=== PATIENT | female | born 1960 | race Caucasian/White ===

== ENCOUNTER 2019-06-27 03:54 | Observation (INO) ==
--- NOTE | 2019-06-27 04:04 | PROVIDER DOCUMENTATION ---
[id number] Abuse/Overdose - General Chief Complaint: Overdose Stated Complaint: OD Time Seen by Provider: 06/27/19 04:03 Source: patient Allergies/Adverse Reactions: Allergies Allergy/AdvReac Type Severity Reaction Status Date / Time No Known Allergies Allergy Verified 01/18/15 11:22 Home Medications: Home Medication List Medication Instructions Recorded Confirmed Last Taken Type Citalopram [Celexa] 20 mg PO DAILY 06/27/19 06/27/19 Unknown History Telmisartan 40 mg PO DAILY 06/27/19 06/27/19 Unknown History - History of Present Illness-Drug/Alcohol Nature of Presenting Problem: Patient is a 58 year old white female who presents by private car complaining of overdose of citalapram tonight of unknown amount. There are 20mg citalapram X 15 that are unaccounted for. Situational problems related to:: reports: significant other (caring for parent who is ill) Psychiatric Complaints: reports: depressed Associated Symptoms: reports: nausea Any injuries associated with this episode of intoxication?: No Similar Symptoms Previously?: No Recently seen or treated by another doctor?: No - Substance Abuse Substance Use: reports: denies - Alcohol Abuse Usually drinks:: occasionally - Overdose Intentional drug overdose?: Yes List substance(s) ingested.: maximum of 20mg citalapram X20 Suicide Risk Assessment: depressed Clinician's estimation of suicide risk?: uncertain risk Review of Systems - Adult - REVIEW OF SYSTEMS - ADULT Constitutional: denies: chills, fever Eyes: reports: no symptoms reported Ears, Nose, Mouth & Throat: reports: no symptoms reported Cardiovascular: reports: no symptoms reported Respiratory: reports: no symptoms reported Gastrointestinal: reports: no symptoms reported Genitourinary: reports: no symptoms reported Musculoskeletal: reports: no symptoms reported Integumentary: reports: no symptoms reported Neurological: reports: no symptoms reported Psychiatric: reports: see HPI, anxiety, depression Endocrine: reports: no symptoms reported Hematologic/Lymphatic: reports: no symptoms reported Allergic/Immunologic: reports: no symptoms reported All Other Systems: Reviewed and Negative Past History - Adult - PAST MEDICAL HISTORY-ADULT Review of Records: reports: Old Records Reviewed, Nursing Assessment Review, Medications Reviewed, Social history reviewed & non-contributory. Major Childhood Illnesses: reports: history unknown Cardiovascular: reports: denies history Respiratory: reports: denies history Gastrointestinal: reports: denies history Genitourinary: reports: denies history Musculoskeletal: reports: denies history Neurological: reports: denies history Psychiatric: reports: anxiety, depression Endocrine/Immune: reports: denies history - PRIOR SURGERIES/PROCEDURES Surgical/Procedure History: reports: hysterectomy, gastric bypass - IMMUNIZATION STATUS Childhood Immunizations: See Nurse Assessment Flu Vaccine: See Nurse Assessment Physical Exam-General - CONSTITUTIONAL General Appearance: alert, no apparent distress, slow to respond - EYES Eyes: other (clear) - HEAD, EARS, NOSE, MOUTH & THROAT HENMT: normocephalic/atraumatic, moist mucous membranes - NECK Neck: non-tender, full range of motion, supple - RESPIRATORY Respiratory: lungs clear, normal breath sounds - CARDIOVASCULAR Cardiovascular: regular rate, rhythm - GASTROINTESTINAL (ABDOMEN) Abdominal Exam: normal bowel sounds, non tender, soft - LYMPHATIC Lymphatic: no adenopathy - MUSCULOSKELETAL Back Exam: normal inspection, no CVA tenderness Extremity: normal range of motion, non-tender Peripheral Pulses: radial (R): 2+, radial (L): 2+ - SKIN Integumentary: normal color, normal turgor, warm/dry - NEUROLOGIC Neurologic: grossly normal, no motor/sensory deficits - PSYCHIATRIC Psych/Mental Status: oriented x 3, depressed affect Progress - PLAN OF CARE/RESULTS Progress/Plan/Lab Results: Vital Signs - 8 hr 06/27/19 04:00 06/27/19 04:48 06/27/19 05:00 Temperature 98.2 F Pulse Rate 82 74 72 Respiratory Rate 20 16 14 Blood Pressure 160/110 137/95 142/100 O2 Sat by Pulse Oximetry 96 93 L 93 L Laboratory Results - last 24 hr 06/27/19 06/27/19 06/27/19 04:04 04:04 04:04 WBC 7.52 RBC 4.88 Hgb 15.6 Hct 47.2 H MCV 96.7 MCH 32.0 H MCHC 33.1 RDW Std Deviation 13.2 Plt Count 238 MPV 8.3 Immature Gran % (Auto) 0.1 Neut % (Auto) 74.5 Lymph % (Auto) 19.7 L Victoria % (Auto) 5.3 Eos % (Auto) 0.3 Baso % (Auto) 0.1 Immature Gran # (Auto) 0.01 Neut # (Auto) 5.60 Lymph # (Auto) 1.48 Victoria # (Auto) 0.40 Eos # (Auto) 0.02 Baso # (Auto) 0.01 Sodium 140 Potassium 3.9 Chloride 102 Carbon Dioxide 26 Anion Gap 13 BUN 13 Creatinine 0.6 Estimated GFR/1.73 m2 > 60 BUN/Creatinine Ratio 22 Glucose 163 H Calculated Osmolality 283 Calcium 9.1 Total Bilirubin 0.40 AST 22 ALT 14 Alkaline Phosphatase 112 H Total Protein 7.0 Albumin 4.7 Globulin 2.0 Albumin/Globulin Ratio 2.0 Salicylates < 3.00 L Urine Opiates Screen Ur Oxycodone Screen Urine Methadone Screen U Propoxyphene Qual Acetaminophen < 1.2 L Ur Barbituates Screen Ur Tricyclics Screen Ur Phencyclidine Scrn Ur Amphetamines Screen U Methamphetamines Scrn U Benzodiazepines Scrn Urine Cocaine Screen U Cannabinoids Screen Plasma/Serum Ethyl Alc 06/27/19 04:08 WBC RBC Hgb Hct MCV MCH MCHC RDW Std Deviation Plt Count MPV Immature Gran % (Auto) Neut % (Auto) Lymph % (Auto) Victoria % (Auto) Eos % (Auto) Baso % (Auto) Immature Gran # (Auto) Neut # (Auto) Lymph # (Auto) Victoria # (Auto) Eos # (Auto) Baso # (Auto) Sodium Potassium Chloride Carbon Dioxide Anion Gap BUN Creatinine Estimated GFR/1.73 m2 BUN/Creatinine Ratio Glucose Calculated Osmolality Calcium Total Bilirubin AST ALT Alkaline Phosphatase Total Protein Albumin Globulin Albumin/Globulin Ratio Salicylates Urine Opiates Screen NONE DETECTED Ur Oxycodone Screen NONE DETECTED Urine Methadone Screen NONE DETECTED U Propoxyphene Qual NONE DETECTED Acetaminophen Ur Barbituates Screen NONE DETECTED Ur Tricyclics Screen NONE DETECTED Ur Phencyclidine Scrn NONE DETECTED Ur Amphetamines Screen NONE DETECTED U Methamphetamines Scrn NONE DETECTED U Benzodiazepines Scrn PRESUMPTIVE POSITIVE A Urine Cocaine Screen NONE DETECTED U Cannabinoids Screen NONE DETECTED Plasma/Serum Ethyl Alc Orders Category Date Time Status Cardiac Monitoring DIRECTED Care 06/27/19 04:04 Active Saline Loc NOW Care 06/27/19 04:05 Active ACETAMINOPHEN [TDM] Stat Lab 06/27/19 04:04 Completed ALCOHOL BLOOD Stat Lab 06/27/19 04:04 Completed CBC WITH ELECTRONIC DIFF [HEME] Stat Lab 06/27/19 04:04 Completed CMP [COMPREHENSIVE METABOLIC PANEL] [CHEM] Stat Lab 06/27/19 04:04 Completed MAGNESIUM [CHEM] Stat Lab 06/27/19 05:34 Ordered SALICYLATES [TDM] Stat Lab 06/27/19 04:04 Completed URINE DRUG SCREEN PL Stat Lab 06/27/19 04:08 Completed Pulse Oximetry Stat Oth 06/27/19 04:05 Completed EKG [EKG] Stat Ther 06/27/19 04:05 Ordered Result Diagrams: 06/27/19 04:04 06/27/19 04:04 - CONSULTS/PCP/HOSPITALIST Notification #1 *Consult/PCP/Hospitalist*: Dr. Valentin,hospitalist Time Discussed: 05:35 Consult Disposition: Admit Departure - Departure Date of Disposition Decision: 06/27/19 Time of Disposition Decision: 05:40 DIAGNOSIS: Suicidal ideation Overdose of antidepressant Qualifiers: Encounter type: initial encounter Injury intent: intentional self-harm Qualified Code(s): T43.202A - Poisoning by unspecified antidepressants, intentional self-harm, initial encounter Disposition: ADMITTED INPATIENT 09 Certified Medical Emergency: Emergent Condition: Stable Referrals and Follow-Ups: Alexandru Noyola MD [Primary Care Provider] - - Critical Care Note This patient required my direct & personal management of CC.: No Attestation - Physician/ BANDAR Attestation Patient care was provided by Advanced Practice Provider:: No The physician spent face to face time with patient:: Yes Advanced Practice Provider documentation review:: Supervising physician onsite and consulted in the evaluation and care of this patient. The physician did have a face to face encounter with the patient.
[2019-06-27 04:15] LABS: BASO# 0.01 X1000 (0.0-0.2); BASO% 0.1 % (0.0-0.8); EOS# 0.02 X1000 (0.0-0.7); EOS% 0.3 % (0.0-10.0); HEMATOCRIT 47.2 % (37.0-47.0); HEMOGLOBIN 15.6 g/dL (12.0-16.0); IMM GRAN# 0.01 X1000 (0.0-0.04); IMM GRAN% 0.1 % (0.0-0.5); LYMPH# 1.48 X1000 (1.2-3.4); LYMPH% 19.7 % (20.5-51.1); MCHC 33.1 g/dL (33-37); MCV 96.7 FL (81-99); MONO% 5.3 % (1.7-9.3); MPV 8.3 FL (7.4-10.4); NEUT% 74.5 % (42.2-75.2); PLT 238 X1000 (130-400); RBC 4.88 XMIL (4.2-5.4); RDW 13.2 % (11.5-14.5); WBC 7.52 X1000 (4.8-10.8)
[2019-06-27 04:33] LABS: UR AMPHETAMINES QUAL NONE DETECTED (NONE DETECT); UR BARBITUATES QUAL NONE DETECTED (NONE DETECT); UR BENZODIAZEPIN QUAL PRESUMPTIVE POSITIVE (NONE DETECT); UR CANNABINOIDS QUAL NONE DETECTED (NONE DETECT); UR COCAINE QUAL NONE DETECTED (NONE DETECT); UR METHADONE QUAL NONE DETECTED (NONE DETECT); UR METHAMPHETAMINE QUAL NONE DETECTED (NONE DETECT); UR OPIATES QUAL NONE DETECTED (NONE DETECT); UR OXYCODONE QUAL NONE DETECTED (NONE DETECT); UR PCP QUAL NONE DETECTED (NONE DETECT); UR PROPOXYPHENE QUAL NONE DETECTED (NONE DETECT); UR TCA QUAL NONE DETECTED (NONE DETECT)
[2019-06-27 04:37] LABS: ACETAMINOPHEN < 1.2 ug/mL (10-30); AGAP 13; ALBUMIN 4.7 g/dL (3.5-5.0); ALKALINE PHOSPHATASE 112 U/L (32-104); BUN 13 mg/dL (8-22); CALCIUM 9.1 mg/dL (8.8-10.2); CHLORIDE 102 mmol/L (98-107); COSMO 283; CREATININE 0.6 mg/dL (0.5-0.9); ESTIMATED GFR > 60; GLUCOSE 163 mg/dL (70-104); GOT 22 U/L (10-30); GPT 14 U/L (10-36); POTASSIUM 3.9 mmol/L (3.5-5.1); SALICYLATES < 3.00 mg/dL (3-10); SODIUM 140 mmol/L (136-145); TCO2 26 mmol/L (25-35)
[2019-06-27] MEDS ORDERED: NS 1,000 ML IV ONE (05:44)
--- NOTE | 2019-06-27 08:30 | EKG Report ---
Test Performed on : 06/27/2019 08:18:49 AM Test Reason : Celexa OD, long QT Blood Pressure : / mmHG Vent. Rate : 104 BPM Atrial Rate : 104 BPM P-R Int : 204 ms QRS Dur : 082 ms QT Int : 310 ms P-R-T Axes : 074 056 034 degrees QTc Int : 407 ms Sinus tachycardia. Nonspecific T wave abnormality Abnormal ECG When compared with ECG of 27-JUN-2019 04:04, (Unconfirmed) Nonspecific T wave abnormality now evident in Lateral leads QT has shortened Confirmed by Vaughn Chin MD ([id number]) on 07/10/2019 3:27:07 PM
--- NOTE | 2019-06-27 08:49 | EKG Report ---
Test Performed on : 06/27/2019 04:04:06 AM Test Reason : od Blood Pressure : / mmHG Vent. Rate : 078 BPM Atrial Rate : 078 BPM P-R Int : 174 ms QRS Dur : 082 ms QT Int : 432 ms P-R-T Axes : 063 015 040 degrees QTc Int : 492 ms Normal sinus rhythm. Prolonged QT Abnormal ECG When compared with ECG of 18-JAN-2015 11:16, No significant change was found Unconfirmed Result
--- NOTE | 2019-06-27 13:07 | EKG Report ---
Test Performed on : 06/27/2019 11:47:37 AM Test Reason : REPEAT Blood Pressure : / mmHG Vent. Rate : 104 BPM Atrial Rate : 104 BPM P-R Int : 186 ms QRS Dur : 080 ms QT Int : 354 ms P-R-T Axes : 066 021 037 degrees QTc Int : 465 ms Sinus tachycardia. Cannot rule out Anterior infarct , age undetermined Abnormal ECG When compared with ECG of 27-JUN-2019 08:18, (Unconfirmed) QT has lengthened Confirmed by Vaughn Chin MD ([id number]) on 07/10/2019 3:26:24 PM
[2019-06-27 13:49] LABS: AGAP 13; ALBUMIN 4.1 g/dL (3.5-5.0); BUN 11 mg/dL (8-22); CALCIUM 8.6 mg/dL (8.8-10.2); CHLORIDE 105 mmol/L (98-107); CK TOTAL 43 U/L (24-173); COSMO 282; CREATININE 0.5 mg/dL (0.5-0.9); ESTIMATED GFR > 60; GLUCOSE 152 mg/dL (70-104); PHOSPHORUS 3.2 mg/dL (2.7-4.5); SODIUM 140 mmol/L (136-145); TCO2 22 mmol/L (25-35)
[2019-06-27] MEDS ORDERED: MAGNESIUM SULFATE 2 GM/S.W.I. 2 GM/50 ML IVPB IV ONE (16:39)
[2019-06-27] MEDS ORDERED: PROTONIX IV ONE (16:58)
[2019-06-27] MEDS ORDERED: SODIUM CHLORIDE 0.9% INJ ONE (16:58)
--- NOTE | 2019-06-27 17:44 | EKG Report ---
Test Performed on : 06/27/2019 5:41:18 PM Test Reason : OP Blood Pressure : / mmHG Vent. Rate : 089 BPM Atrial Rate : 089 BPM P-R Int : 166 ms QRS Dur : 082 ms QT Int : 390 ms P-R-T Axes : 069 024 044 degrees QTc Int : 474 ms Normal sinus rhythm. Normal ECG When compared with ECG of 27-JUN-2019 11:47, (Unconfirmed) No significant change was found Confirmed by Vaughn Chin MD ([id number]) on 07/10/2019 3:26:17 PM
--- NOTE | 2019-06-27 17:48 | HISTORY AND PHYSICAL ---
CHIEF COMPLAINT: Overdose. HISTORY OF PRESENT ILLNESS: This is a 58-year-old female who presented to the emergency room with her after taking a lot of her pills. The is at the bedside and history is taken from the . Apparently, the patient has been under a lot of stress as she is taking care of her mother with dementia. She has been out of a job and she has had other stressors. Prior to coming to the ER, he noted there are approximately 20 pills of Celexa that he is unable to account for. The patient at this time has not admitted taking the medication. The just knows that the patient is altered. At the time of my exam, the patient has tearful, she will repeat her 's name over and over. She wants to hold his hand. If the speaks to any of the staff, she gets louder calling his name until he looks at her. PAST MEDICAL HISTORY: Hypertension, dementia, anxiety, chronic lower extremity edema. Occasional alcohol use. PAST SURGICAL HISTORY: Left ear, gastric bypass, hammertoe, right foot, hysterectomy. SOCIAL HISTORY: She is , lives with her . She cares for her mother with dementia. She has not worked since October due to having to care for her mother. She does drink alcohol occasionally. ALLERGIES: No known drug allergies. HOME MEDICATIONS: Celebrex, citalopram. REVIEW OF SYSTEMS: Unable to obtain from the patient. PHYSICAL EXAMINATION: GENERAL: This is a 58-year-old female who is sitting up in the stretcher in the emergency room, tearful with her at her bedside. VITAL SIGNS: Blood pressure is 138/98, with a heart rate of 103, respirations are 17, temperature 98.2 degrees with room air saturations 94% to 96%. EYES: Pupils are equal, round, react to light. Sclerae anicteric. HEENT: Head is normocephalic, atraumatic. Mucous membranes are moist. NECK: Supple with trachea midline. CARDIOVASCULAR: Regular rate and rhythm. S1 and S2 appreciated. She has no lower extremity edema. Peripheral pulses are palpable x4 extremities. PULMONARY: Breath sounds are clear with no increased work of breathing noted. Chest rises and falls with symmetric respiration. GASTROINTESTINAL: Abdomen is soft, nontender, nondistended, with bowel sounds in all 4 quadrants. SKIN: Warm and dry. NEUROLOGIC: She is alert. She is oriented to person, family members and place. She moves all extremities at random. She does follow some simple commands as far as gross movement to arms and legs. She does not cooperate with a further exam at this time. LABORATORY DATA: WBC is 7.5 with hemoglobin 15.6, hematocrit 47.2, platelets of 238,000. Sodium 140, potassium 3.9, BUN 13, creatinine 0.6 with a glucose of 163, magnesium is 1.9, calcium is 9.1. Urine drug screen is presumptive positive for benzodiazepine. EKG at 4 a.m. with sinus rhythm at a rate of 78 with a QTc of 492. EKG at 8:08 a.m. revealed sinus tachycardia at a rate of 104 with a QTc of 407. EKG at 12 noon, sinus tachycardia 104 with a QTc of 465. ASSESSMENT AND PLAN: 1. Suicidal ideation. 2. Presumed overdose of Celexa with intentional self-harm. 3. History of hypertension. 4. History of depression. 5. Positive urine drug screen with benzodiazepine. PLAN: The patient will be admitted to ICU for close monitoring, placed on telemetry. obtain serial EKGs to monitor QTc. Poison control's parameters stated potassium needs to be 4 or greater, calcium 8.5 or greater, magnesium 2 or greater so will treat accordingly. EKG at 6 p.m. CBC, CMP and magnesium in the morning neuro checks. she is more awake and cooperative, she can be placed on a regular diet. DVT prophylaxis will use SCDs and for GI prophylaxis will give 1 dose of IV Protonix and then once we are sure that she is swallowing well, we can change to oral prophylaxis. Plan was discussed with Dr. Valentin. Further treatments pending hospital course. Dictated by PAIGE Schmitz for Iker Valentin MD cc: PAIGE Schmitz MD [facility]
--- NOTE | 2019-06-28 01:13 | HISTORY AND PHYSICAL ---
ADDENDUM CHIEF COMPLAINT: Overdose. Patient seen and examined by myself. Full note dictated and discussed with nurse practitioner. Patient apparently took approximately 15 citalopram. Thankfully, her blood pressures and EKGs currently are stable. We are going to admit her to the hospital, to ICU, and will follow. cc: Iker Valentin MD
[2019-06-28 06:36] LABS: AGAP 10; ALBUMIN 3.6 g/dL (3.5-5.0); ALKALINE PHOSPHATASE 92 U/L (32-104); BUN 8 mg/dL (8-22); CALCIUM 8.4 mg/dL (8.8-10.2); CHLORIDE 104 mmol/L (98-107); COSMO 277; CREATININE 0.4 mg/dL (0.5-0.9); ESTIMATED GFR > 60; GLUCOSE 120 mg/dL (70-104); GOT 17 U/L (10-30); GPT 11 U/L (10-36); MAGNESIUM 1.9 mg/dL (1.5-2.7); POTASSIUM 3.9 mmol/L (3.5-5.1); SODIUM 139 mmol/L (136-145); TCO2 25 mmol/L (25-35); TOTAL PROTEIN 6.1 g/dL (6.3-8.3)
[2019-06-28 06:43] LABS: HEMATOCRIT 42.9 % (37.0-47.0); HEMOGLOBIN 14.2 g/dL (12.0-16.0); MCH 32.3 PG (27-31); MCHC 33.1 g/dL (33-37); MCV 97.5 FL (81-99); MPV 8.9 FL (7.4-10.4); RBC 4.4 XMIL (4.2-5.4); RDW 13.1 % (11.5-14.5); WBC 9.62 X1000 (4.8-10.8)
[2019-06-28] MEDS ORDERED: MAGNESIUM SULFATE 1 GM/D5W 1 GM/100 ML IVPB IV ONE (06:59)
[2019-06-28] MEDS ORDERED: KLOR-CON PO ONE (07:00)
--- NOTE | 2019-06-28 10:45 | PROGRESS NOTE ---
DATE: 06/28/2019 SUBJECTIVE: Patient denies having any acute complaints this morning and feels well. OBJECTIVE: Vital Signs: Temperature 99.2 degrees, pulse 86 per minute, respiratory rate 17 per minute, blood pressure 149/73, pulse ox 97% on 2 L of oxygen via nasal cannula. General: Patient is alert and oriented x3. She does not appear to be in any acute distress. Cardiovascular System: First and second heart sounds are audible without any murmurs or gallops. Respiratory System: No respiratory distress noted. Bilateral lung air entry is good without any rales or rhonchi. Gastrointestinal System: Abdomen is soft and nontender. Normal bowel sounds are present. Musculoskeletal System: No deformities are present. DIAGNOSTIC DATA: CBC is within normal limits. Chemistry done this morning also is nondiagnostic, although she had a 9 beat nonsustained ventricular tachycardia at 5 a.m. this morning, and therefore her potassium levels were slightly below target of 4.0 at 3.9. Her magnesium levels were also found to be 1.9 and the target is at least 2.0. IMPRESSION: 1. Citalopram overdose. 2. Nonsustained ventricular tachycardia. PLAN: The patient has been given 1 g of magnesium sulfate IV, along with 20 mEq of potassium orally. We are going to continue telemetry monitoring and repeat tomorrow morning. I am also going to obtain a urinalysis to make sure she does not have any UTI since she has a low-grade fever of 99.2 degrees. Further recommendation will be given as per hospital course. cc: Jorge Mcgregor MD
[2019-06-28 14:59] LABS: BILIRUBIN URINE NEGATIVE (NEGATIVE); BLOOD URINE NEGATIVE (NEGATIVE); CLARITY CLEAR (CLEAR); COLOR YELLOW; GLUCOSE URINE NEGATIVE (NEGATIVE); KETONE URINE NEGATIVE (NEGATIVE); NITRITE URINE NEGATIVE (NEGATIVE); PROTEIN URINE NEGATIVE (NEGATIVE); URINE SOURCE CLEAN CATCH; UROBILINOGEN URINE NORMAL
[2019-06-28 15:00] LABS: LEUKOCYTES URINE TRACE (NEGATIVE)
[2019-06-28 15:01] LABS: URINE BACTERIA 1+ /HFP; URINE CAST NONE SEEN /LPF; URINE CRYSTAL NONE SEEN /HPF; URINE EPITHELIAL CELLS >10 /HPF (<10); URINE RBC <10 /HPF (<10); URINE WBC <10 /HPF (<10); URINE YEAST NONE SEEN /HPF
[2019-06-29 07:15] LABS: AGAP 13; BUN 12 mg/dL (8-22); CALCIUM 8.7 mg/dL (8.8-10.2); CHLORIDE 101 mmol/L (98-107); COSMO 281; CREATININE 0.5 mg/dL (0.5-0.9); ESTIMATED GFR > 60; GLUCOSE 99 mg/dL (70-104); MAGNESIUM 2.1 mg/dL (1.5-2.7); POTASSIUM 3.9 mmol/L (3.5-5.1); SODIUM 141 mmol/L (136-145); TCO2 26 mmol/L (25-35)
[2019-06-29] MEDS ORDERED: KLOR-CON PO ONE (09:44)
--- NOTE | 2019-06-29 13:33 | PROGRESS NOTE ---
DATE: 06/29/2019 SUBJECTIVE: Patient denies having any acute complaints this morning. OBJECTIVE: Vital Signs: Temperature 98.2 degrees, pulse 95 per minute, respiratory rate 12 per minute, blood pressure 144/84, pulse oximetry 96% on 2 L of oxygen via nasal cannula. General: Patient is alert and oriented x3. She does not appear to be in any acute distress. Cardiovascular System: First and second heart sounds are audible without any murmurs or gallops. Respiratory System: Bilateral lung air entry is good without any rales or rhonchi. Abdomen: Benign. Psychiatric: The patient appears to have a flat affect. DIAGNOSTIC DATA: CBC was found to be normal yesterday and we repeated basic metabolic panel today that is nondiagnostic. Magnesium levels were found to be 2.1 this morning. IMPRESSION: 1. Citalopram overdose. 2. Nonsustained ventricular tachycardia. PLAN: The patient has remained stable for the previous 24 hours. I believe we have to keep her for another day to make sure she does not have any side effects of citalopram overdose. After that, according to protocol, she can be medically cleared and we can call for [facility] to have a psychiatric evaluation. cc: Jorge Mcgregor MD
[2019-06-30] MEDS ORDERED: MICARDIS PO SCH (09:00)
[2019-06-30 11:10] LABS: BASO# 0.04 X1000 (0.0-0.2); BASO% 0.6 % (0.0-0.8); EOS# 0.08 X1000 (0.0-0.7); EOS% 1.2 % (0.0-10.0); HEMATOCRIT 51.3 % (37.0-47.0); HEMOGLOBIN 17.1 g/dL (12.0-16.0); IMM GRAN# 0.02 X1000 (0.0-0.04); IMM GRAN% 0.3 % (0.0-0.5); LYMPH# 1.37 X1000 (1.2-3.4); MCH 31.9 PG (27-31); MCHC 33.3 g/dL (33-37); MCV 95.7 FL (81-99); MONO% 8.8 % (1.7-9.3); MPV 8.3 FL (7.4-10.4); NEUT# 4.74 X1000 (1.4-6.5); NEUT% 69.1 % (42.2-75.2); PLT 242 X1000 (130-400); RBC 5.36 XMIL (4.2-5.4); WBC 6.85 X1000 (4.8-10.8)
--- NOTE | 2019-06-30 11:20 | Diag Imaging Result Doc PS360 ---
EXAM: CT HEAD W/O CONTRAST HISTORY: AMS TECHNIQUE: CT head without contrast COMPARISON: 2 06/27 FINDINGS: No parenchymal hemorrhage. No epidural or subdural hematoma. No subarachnoid hemorrhage. Mild atrophy. No mass identified on this noncontrasted exam. No hydrocephalus. No sinus opacification. IMPRESSION: No hemorrhage. Negative brain CT without contrast. This exam was performed using automated exposure control, adjustment of mA or kV according to patient size, and/or use of iterative reconstruction technique. Electronically signed by Dexter Archuleta 06/30/2019 11:18 AM
[2019-06-30 11:23] LABS: UR AMPHETAMINES QUAL NONE DETECTED (NONE DETECT); UR BARBITUATES QUAL NONE DETECTED (NONE DETECT); UR BENZODIAZEPIN QUAL NONE DETECTED (NONE DETECT); UR CANNABINOIDS QUAL NONE DETECTED (NONE DETECT); UR COCAINE QUAL NONE DETECTED (NONE DETECT); UR METHADONE QUAL NONE DETECTED (NONE DETECT); UR METHAMPHETAMINE QUAL NONE DETECTED (NONE DETECT); UR OPIATES QUAL NONE DETECTED (NONE DETECT); UR OXYCODONE QUAL NONE DETECTED (NONE DETECT); UR PCP QUAL NONE DETECTED (NONE DETECT); UR PROPOXYPHENE QUAL NONE DETECTED (NONE DETECT); UR TCA QUAL NONE DETECTED (NONE DETECT)
[2019-06-30 11:29] LABS: AGAP 14; ALBUMIN 4.1 g/dL (3.5-5.0); ALKALINE PHOSPHATASE 114 U/L (32-104); BUN 10 mg/dL (8-22); CALCIUM 9.1 mg/dL (8.8-10.2); CHLORIDE 99 mmol/L (98-107); COSMO 279; CREATININE 0.6 mg/dL (0.5-0.9); ESTIMATED GFR > 60; GLUCOSE 110 mg/dL (70-104); GOT 17 U/L (10-30); GPT 8 U/L (10-36); POTASSIUM 4.3 mmol/L (3.5-5.1); SODIUM 140 mmol/L (136-145); TCO2 27 mmol/L (25-35)
--- NOTE | 2019-06-30 11:35 | Diag Imaging Result Doc PS360 ---
EXAM: CHEST-2 VIEWS HISTORY: DW policy TECHNIQUE: PA and Lateral chest x-ray COMPARISON: 01/18/2015, 09/01/2013 FINDINGS: The cardiomediastinal silhouette is within normal limits. The pulmonary vasculature is not congested. No infiltrate, effusion, or pneumothorax is appreciated. There is a 1 cm nodule noted anterior on the lateral view. This was shown to represent a calcified granuloma on previous CT thorax 09/03/2012. IMPRESSION: No acute cardiopulmonary abnormality is identified. Electronically signed by Gabi More 06/30/2019 11:33 AM
[2019-06-30 11:42] LABS: URINE SOURCE CLEAN CATCH
[2019-06-30 11:47] LABS: FREE T4 1.83 ng/dL (0.93-1.70); TSH 4.89 uIUmL (0.27-4.20)
[2019-06-30 11:52] LABS: BILIRUBIN URINE NEGATIVE (NEGATIVE); BLOOD URINE 1+ (NEGATIVE); GLUCOSE URINE NEGATIVE (NEGATIVE); KETONE URINE 1+(Small) mg/dL (NEGATIVE); LEUKOCYTES URINE 2+ (NEGATIVE); NITRITE URINE NEGATIVE (NEGATIVE); PH URINE 6.5; PROTEIN URINE NEGATIVE (NEGATIVE); SP GRAVITY URINE 1.015; UROBILINOGEN URINE 1 mg/dL
[2019-06-30 11:53] LABS: CLARITY CLEAR (CLEAR); COLOR YELLOW
[2019-06-30 11:58] LABS: URINE BACTERIA 2+ /HFP; URINE CAST NONE SEEN /LPF; URINE CRYSTAL NONE SEEN /HPF; URINE EPITHELIAL CELLS >10 /HPF (<10); URINE RBC <10 /HPF (<10); URINE SMALL ROUND CELLS RENAL PRESENT; URINE WBC 20-40 /HPF (<10); URINE YEAST NONE SEEN /HPF
--- NOTE | 2019-06-30 12:11 | DISCHARGE SUMMARY ---
ADMISSION DATE: 06/27/2019 DISCHARGE DATE: 06/30/2019 ADMISSION DIAGNOSES: 1. Suicidal ideation. 2. Presumed overdose of Celexa with intentional self-harm. 3. History of hypertension. 4. History of depression. 5. Positive urine drug screen with benzodiazepine. DISCHARGE DIAGNOSES: 1. Citalopram overdose. 2. Nonsustained ventricular tachycardia. CONSULTATIONS: [facility]. SURGERIES/PROCEDURES: None. CONSULTATIONS: None. HOSPITAL COURSE: Mr. Manas Darling is a 58-year-old female who presented to the emergency department at [place] after her saw her taking a lot of pills. The was the one that gave the information on admit. Apparently, she had been under a lot of stress with her mother having dementia, being out of a job, and multiple other stressors. Apparently, she possibly had taken 20 pills of Celexa, but that is how many pills that he was unable to account for. When she presented, she was altered and would not admit to taking medication. After the examination, she was tearful, kept repeating her 's name over and over, wanting to hold his hand. If he was trying to speak to the staff, she would call his name even louder, trying to make sure he looked at her. So she was transferred to the ICU for closer observation. They monitored serial EKGs. Poison Control wanted potassiums to be 4.0 or greater and calcium 8.5 or greater, and a magnesium of 2 or greater. At time went, she was more awake and more alert, was placed on a regular diet. Electrolytes continued to be replaced while she was here. She did have a little low grade 99.2 degree fever. It is reported that she had a spell of nonsustained ventricular tachycardia. It does not appear that any of that was caught on an EKG, and there were no telemetry strips. She did have a prolonged QTc in the beginning, 492. Otherwise labs remained good and she is stable and deemed appropriate for discharge to [facility]. DISCHARGE VITAL SIGNS: Temperature 99.0 degrees, heart rate 84, respiratory rate 17, blood pressure 137/81, O2 saturation 93% on room air. DISCHARGE LABORATORY DATA: White blood cells 6000, hemoglobin 17, hematocrit 51, platelet count 242,000. Sodium 140, potassium 4.3, BUN 10, creatinine 0.6, glucose 110, calcium 9.1. Magnesium 1.9, bilirubin 0.70, AST 17, ALT 18. Urine drug screen negative. IMAGING: Today on the , head CT negative. Chest x-ray: No acute findings. EKGs, all from the , these were serial EKGs, first one was normal sinus rhythm, rate 78, QTc 492. The second one was sinus tachycardia, rate 104, QTc 407. The third one was sinus tachycardia, rate 104, QTc 465. The fourth one was rate 89, QTc 474, she is also in normal sinus rhythm. DISCHARGE MEDICATIONS: Telmisartan 40 mg p.o. daily. DISCHARGE DIET: Regular. DISCHARGE ACTIVITY: As tolerated. DISCHARGE INSTRUCTIONS: Will be per [facility] facility upon discharge from there. DISCHARGE DISPOSITION: [facility] transfer. Dictated by PAIGE Epps for Iker Valentin MD cc: PAIGE Epps MD
[2019-06-30 12:23] VITALS: BP 139/88
--- NOTE | 2019-07-01 05:04 | PROGRESS NOTE ---
DATE: 06/30/2019 SUBJECTIVE: The patient has no complaints other than the fact that she does not want her currently in her room. She states that is a large part of her home stressors. PHYSICAL EXAMINATION: Vital Signs: Reviewed. Temperature 98 degrees, pulse 82, respiratory 18, General: The patient is awake. She is in no respiratory distress. Very pleasant. HEENT: Normocephalic. Neck: Supple. Cardiovascular: Regular rate. Chest: Clear. Abdomen: Soft. Extremities: Moves all extremities. ASSESSMENT: 1. Depression with suicidal ideations. 2. Overdose with Celexa, currently is stable. 3. Hypertension. 4. Chronic depression. PLAN: We will continue patient in the hospital. Consult [facility] for assistance. If there is a bed available, she can be transferred. We will continue to follow. Continue assistance. cc: Iker Valentin MD MTDD
--- NOTE | 2019-07-01 19:48 | DISCHARGE SUMMARY ---
ADMISSION DATE: 06/27/2019 DISCHARGE DATE: 06/30/2019 DISCHARGE DIAGNOSES: 1. Intentional overdose with suicidal ideations. 2. Depression. 3. Hypertension. 4. Chronic anxiety. 5. Chronic lower extremity edema. 6. Occasional alcohol use. CONSULTATIONS: [facility]. PROCEDURES: None. BRIEF HOSPITAL COURSE: The patient is a 58-year-old female who presented to [facility] program after having taken approximately 20 Celexa. She has been under a fair amount of stress taking care of her mother with dementia. She took the Celexa, stating that she just wanted to sleep and not wake up. Thankfully, she had an uneventful hospital course. She had no issues with dysrhythmias during the hospital stay. Her labs and physical exam remained stable. Unfortunately, mentally, she continued to be depressed and stressed. DISPOSITION: Patient will be discharged to [facility]. No changes have been made on her home medications although clearly we withheld her Celexa and its antidepressants will be restarted or adjusted by [facility]. cc: Iker Valentin MD
== END 2019-06-30 12:15 ==
LOC: P.ED 03:54 → P.ICU 03:54 → SUATTDRO 07:00
PROVIDERS: ATTEND Family Medicine